=== PATIENT | female | born 1940 | race Hispanic/Latino ===

== ENCOUNTER 2018-03-16 10:21 | Inpatient (IN) | payer OTHER ==
[~2018-03-16] VITALS: Ht 144.8 cm; Wt 67.6 kg
--- NOTE | ~2018-03-16 | OR ---
[facility] [address] [facility] [place], [place] [address] Draft DATE OF OPERATION: 03/19/2018 SURGEON: Lucie Hastings MD PREOPERATIVE DIAGNOSIS: Bloody ascites with carcinomatosis. POSTOPERATIVE DIAGNOSIS: Bloody ascites with carcinomatosis. PROCEDURE: Right abdominal wall paracentesis 4 L. ANESTHESIA: 1% lidocaine. INDICATION: This 77-year-old Congolese woman is admitted by me to the hospital on 03/16/2018 with symptomatic classic abdominal ascites and CT scan showing omental caking and findings of carcinomatosis. A preliminary paracentesis was performed in the emergency room showing bloody ascites. She has undergone additional testing, fluid resuscitation and so forth. Her initial hematocrit was 29, subsequently 24. She was transfused 2 units of blood yesterday. She is hemodynamically good now, although she is quite asymptomatic from her distended abdomen and ascites. A palliative paracentesis was offered and accepted by the patient. The risks of bleeding, infection, and so forth were reviewed and understood. FINDINGS: Bloody ascites, fluid was noted. It was dark blood, not bright in any way. She tolerated it well, 4 L were removed with marked improvement of her abdominal girth. DESCRIPTION OF PROCEDURE: On the supine position, the right lateral abdominal wall was prepared with a Betadine solution and draped sterilely. A 1% lidocaine injected locally. Using a through the needle catheter kit, after local anesthetic administered, the peritoneal cavity was entered and the catheter placed an aspiration undertaken showing bloody ascites fluid. The catheter secured to Accutane bottle and four such bottles were filled without problem. Palpation of the abdomen showed it to be markedly improved. The catheter was removed and a Band-Aid was applied. PATIENT NAME: KANDICE EVANGELISTA OPERATIVE REPORT DATE OF : 44 REPORT #: [id number] PHYSICIAN: LUCIE HASTINGS MD PCP: NO PRIMARY CARE PHYSICIAN REPORT IS CONFIDENTIAL AND NOT TO BE RELEASED WITHOUT AUTHORIZATION [facility] [address] [place] [id number] Draft Evaluation of the fluid has already been undertaken, however, we will send this additional large volume of fluid for cytologic examination as well. MD JAI Monte/MODL /[id number] cc: Courtney More MD Copies: COURTNEY MORE MD ~ PATIENT NAME: KANDICE EVANGELISTA OPERATIVE REPORT DATE OF : 42 REPORT #: [id number] PHYSICIAN: LUCIE HASTINGS MD PCP: NO PRIMARY CARE PHYSICIAN REPORT IS CONFIDENTIAL AND NOT TO BE RELEASED WITHOUT AUTHORIZATION
--- NOTE | ~2018-03-16 | DS ---
[facility] [address] [place], [place] [address] Draft ADMISSION DATE: 03/16/2018 DISCHARGE DATE: 03/20/2018 REASON FOR ADMISSION: This 77-year-old [place] woman is accompanied by her . They live in [place]. Her methodist band tumbler and Dr. Dixon, a retired floorhand from [employer] (retired since 1999), now lives in [facility], and happens to be a member of her methodist accompanied her. Six weeks prior to admission, she underwent umbilical hernia repair in [place]. In the past few days she has not been feeling well and had increased abdominal distention. She presented to the emergency room where she was thoroughly evaluated by Dr. Leal and found to have abdominal distention and concern for possible bowel obstruction related to previous recent hernia repair. A CT scan was performed, which showed no finding of hernia, but did show omental caking, and considerable amount of intraabdominal ascites. The liver appeared normal. She has undergone open cholecystectomy in the past and is known to have had hysterectomy and possibly ovariectomy. LAB STUDIES: Were remarkable for a platelet count of 507,000, white count 10.8, hematocrit 29.4. Lipase was 40, bilirubin 0.3, albumin 3.4, AST 42, and other liver enzymes are normal. PHYSICAL EXAMINATION: A dark-skinned [place] woman with few teeth. Trachea is midline. Mucous membranes moist. CHEST: Clear. HEART: Regular without murmur. ABDOMEN: Distended and not tender. No overt dyspnea. Incision was noted in the umbilicus, which was healing well. The subcostal incision is well healed also. HOSPITAL COURSE: Consultation was undertaken on the basis of probable intraabdominal malignancy with ascites and omental caking and so on. I discussed with Dr. Leal the high probability this represents a malignancy of the ovaries or primary peritoneal carcinoma if ovariectomy has been undertaken, but the possibility of pancreatic cancer and other malignancies is also consideration. Paracentesis was performed by me. She was found to have bloody ascites. Both left and right abdomens were punctured to assess this and confirm this was hemorrhagic ascites rather than simply a complication of the procedure itself. This was affirmed as hemorrhagic ascites. She was admitted to the hospital given intravenous fluids, pain medications, and fluid sent for cytology and cultures to include acid-fast bacilli considering the remote possibility of tuberculous peritonitis. Still by day of discharge, there was no answer regarding the cytology. However, the PATIENT NAME: KANDICE EVANGELISTA DISCHARGE SUMMARY DATE OF : 42 REPORT #: [id number] PHYSICIAN: LUCIE HASTINGS MD PCP: NO PRIMARY CARE PHYSICIAN REPORT IS CONFIDENTIAL AND NOT TO BE RELEASED WITHOUT AUTHORIZATION [facility] [address] [place], [place] [address] Draft pathology showed no signs of organisms, only numerous red cells. There were no organisms seen either. Her urine was cultured as she did have an abnormal urinalysis, which showed E coli. Her CBC was checked the following day, which was down to 24.5. She had significant tenderness of the abdomen likely related to her hemorrhagic ascites. A family conference was occurred with an executive account manager present, which was reliable as well as her and her daughter over this telephone, who lived in [place]. Preliminary information showed high probability this represented ovarian or peritoneal carcinoma considering elevated CA 125 at 65, and only slightly elevated CEA at 4.28 and a CA 19-9, which is only 6.81. AFP hepatic neoplasm marker was normal at 2.62. As a method of symptom control, she underwent 4 L paracentesis on March 19, 2018. This provided market relief of her abdominal pain and distention. At that point, she was able to tolerate a regular diet. Upon further consideration of her options of management to include laparotomy, tumor debulking, and chemotherapy versus symptomatic palliation. In conjunction with her family and discussion with her and so forth, no further intervention of operation or chemotherapy was desired by the patient or family. This specifically noted because it would not be curative. Though it would not be curative, it might provide significant palliation, but still this was not desired by the patient or her family. She does not have a primary care provider and therefore an attempt will be made to align with a primary provider in the [facility] at [facility]. Of note, consultation had been undertaken with Dr. Galicia during hospitalization, whose impression and so forth concurred with my own. She will be discharged to home and will be attempting to sign up with Medicare/Medicaid as she is considered eligible by the eligibility consultant. I will see her back in 4 weeks or so in the office. It is highly probable she will require additional palliative intervention including palliative paracentesis. Attempts were made to control the ascites to some degree with spironolactone and Lasix. At present, she does not have abdominal pain and therefore opiate pain medication is not needed at this time. DISCHARGE MEDICATIONS: Include, 1. Tylenol 650 mg p.o. q.6 hours as needed for pain. 2. Pepcid 20 mg p.o. b.i.d. 3. Aldactone 50 mg p.o. two times daily #60, refill two. 4. Lasix 20 mg p.o. daily #30, refill three. 5. Iron gluconate 236 mg p.o. daily #60. 6. Cipro 500 mg p.o. b.i.d. PATIENT NAME: KANDICE EVANGELISTA DISCHARGE SUMMARY DATE OF : 44 REPORT #: [id number] PHYSICIAN: LUCIE HASTINGS MD PCP: NO PRIMARY CARE PHYSICIAN REPORT IS CONFIDENTIAL AND NOT TO BE RELEASED WITHOUT AUTHORIZATION [facility] [address] [place], [place] [address] Draft DISCHARGE DIAGNOSES: 1. 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 2. Incidental asymptomatic urinary tract infection. 3. History of abdominal hysterectomy, uncertain regarding ovariectomy. 4. Relatively recent umbilical hernia repair ([place]) 6 weeks ago. 5. Hypertension. 6. Anemia. MD JAI Monte/MODL /[id number] cc: Isreal Galicia MD Copies: ISREAL LEAL LOHITH VEERAPPA MD ~ PATIENT NAME: KANDICE EVANGELISTA DISCHARGE SUMMARY DATE OF : 42 REPORT #: [id number] PHYSICIAN: LUCIE HASTINGS MD PCP: NO PRIMARY CARE PHYSICIAN REPORT IS CONFIDENTIAL AND NOT TO BE RELEASED WITHOUT AUTHORIZATION
[2018-03-16] MEDS ORDERED: LISINOPRIL10 MG PO (10:35)
--- NOTE | 2018-03-16 15:09 | NUR ---
PT ARRIVED FROM ED WITH CARRY TRAINING AND DEVELOPMENT PROFESSIONAL RN AT 1505. PT TRANSFERRED SELF FROM STRETCHER TO BED. SIGNIFICANT OTHER AT BEDSIDE. ALBANIAN SPEAKING PRIMARILY. PATIENT APPEARS TO BE ALERT AND ORIENTED. NO NEEDS AT THIS TIME. REPORT SMALL AMOUNT OF PAIN IN ABDOMEN.
--- NOTE | 2018-03-16 16:53 | NUR ---
pt sitting up in bed. significant other at bedside. water provided. septra administered. D5LR infusing into LFA iv. reports not being hungry. pain 5/10 in abdomen.
--- NOTE | 2018-03-16 18:49 | NUR ---
CENTRAL AFRICAN SPEAKING ONLY. SBA TO BATHROOM. MODERATE TO SEVERE ABD DISTENTION. REGULAR DIET. ABD PAIN. ASCITES. PERITONEAL TAP IN ED. CANCER MARKER TESTS DRAWN. AWAITING RESULTS. AT BEDSIDE. ALSO ONLY SPEAKS CENTRAL AFRICAN. ALERT AND ORIENTED. SCDs. D5LR @ 85. SEPTRA PO FOR UTI. HERNIA SURGERY IN [place] IN JANUARY.
--- NOTE | 2018-03-16 18:53 | NUR ---
PROVIDED WITH PILLOW AND BLANKETS TO SLEEP ON COUCH TONIGHT. FAMILY LEAVING SOON. PATIENT UP TO BATHROOM AND THEN UP IN RECLINER NOW. VOIDED 200ML YELLOW URINE. WASHED HANDS AT SINK. DINNER DELIVERED TO ROOM BY DIETARY STAFF.
--- NOTE | 2018-03-16 20:00 | NUR ---
RECEIVED REPORT AT 1900, FOUND PT IN BED WITH FAMILY AT BEDSIDE. PT WAS VOMITING AND ZOFRAN WAS GIVEN. DAY SHIFT RN ALSO CALLED MD HASTINGS FOR STATUS UPDATE AND RECEIVED NEW ORDERS.
--- NOTE | 2018-03-16 21:22 | NUR ---
VITALS AND I&OS DONE AND CHARTED. CHANGED HER BED AND GOWN DUE TO HER HAVING EMISES ON THEM. BEDSIDE TABLE AND CALL LIGHT IN REACH, INFORMED ANGELA VARNER OF THIS.
--- NOTE | 2018-03-16 22:00 | NUR ---
HR IS 100-105. OTHER V/S ARE WDL. 12.5MG OF PHENERGAN HAD TO BE GIVEN WELL DUE TO EMESIS OF ABOUT 500ML. PT HAS BEEN NPO SINCE ABOUT 1999, IV FLUIDS HAVE BEEN INCREASED TO 125ML/HR AT THE SAME TIME WELL. CROCHET BEADER ALSO MONITORING PT DUE TO HIGH DOSES OF NARCOTICS. ABD SOUNDS ARE PRESENT BUT DISTANT DUE TO ASCITIS IN ABD. ABD HAS SEVERE DISTENTION PRESENT AND IS FIRM AND TENDER TO TOUCH. ALL LOBES ARE CLEAR. WILL CONTINUE TO MONITOR.
--- NOTE | 2018-03-17 00:06 | NUR ---
PT WAS SLEEPING. WOKE PT UP FOR ASSESSMENT. ABD SOUNDS ARE NOW HYPOACTIVE, ABD SIZE HAS INCREASED SOME, PT DENIED PAIN AND N/V. PT IS STILL TACHY AT 100-110. WILL CONTINUE TO MONITOR.
--- NOTE | 2018-03-17 01:47 | NUR ---
VITALS AND I&OS DONE AND CHARTED. HELPED PT TO THE BATHROOM AND BACK TO BED. BEDSIDE TABLE AND CALL LIGHT WITHIN REACH. PT AND FAMILY NEEDS NOTHING ELSE AT THIS TIME.
--- NOTE | 2018-03-17 02:00 | NUR ---
PT IS SLEEPING AT THIS TIME. FAMILY IS AT BEDSIDE.
--- NOTE | 2018-03-17 04:02 | NUR ---
PT IS AWAKE IN BED. HAS NO NEEDS AT THIS TIME. FAMILY AT BEDSIDE IS SLEEPING.
--- NOTE | 2018-03-17 05:28 | NUR ---
AT START OF SHIFT PT HAD N/V AND PRN ZOFRAN DID NOT HELP. PRN PHENERGAN WAS GIVEN AND PT WAS MADE NPO. SINCE THEN PT HAS NOT HAD ANY N/V AND PAIN AND HAS BEEN SLEEPING OFF AND ON. ALL LOBES ARE CLEAR, ABD HAS SEVERE ASCITIS PRESENT WITH DISTANT BOWEL TONES. ABD IS FIRM. PT IS AAO X4. HR IS MILDLY TACHY 100-105. O2 SATS ARE >92% ON RA. WILL CONTINUE TO MONITOR.
--- NOTE | 2018-03-17 07:20 | NUR ---
RECIEVED CHANGE OF SHIFT REPORT FROM GARDENIA MILLER. PATIENT RESTING COMFORTABLY IN BED. IV FLUIDS INFUSING. CALL LIGHT WITHIN REACH.
--- NOTE | 2018-03-17 08:19 | NUR ---
TANIAEINT WAS ASSISTED FROM THE CHAIR TO THE BED, SHE IS NPO, SHE SAID SHE MIGHT SHOWER LATER ON, SHE NEEDED NO OTHER ASSISTANCE AT THE TIME WILL RECHECK, BOARD WAS UPDATED.
--- NOTE | 2018-03-17 09:51 | NUR ---
ROUNDED ON PATIENT FOR MEDICATION ADMINISRATION AND MORNING ASSESSMENT, VISITORS AT BEDSIDE. CALL LIGHT WITHIN REACH. AMBULATED PATIENT TO RESTROOM AND BACK TO BED, PATIENT REPORTED RINGING IN RIGHT EAR BUT DENIES DIZZINESS. IV FLUIDS INFUSING AND REPLACED. REPORTS PAIN "3/10" IN ABDOMEN, DENIES WANTING PAIN MEDICATION AT THIS TIME. NO MORE NEEDS AT THIS TIME. WILL CONTINUE TO MONITOR.
--- NOTE | 2018-03-17 10:13 | NUR ---
ROUNDED ON PATIENT TO PLACE SCDs, EDUCATION PROVIDED, PATIENT EXPRESSED UNDERSTANDING.
--- NOTE | 2018-03-17 13:13 | OR ---
[facility] [address] [place], [place] [address] Signed DATE OF OPERATION: 03/16/2018 SURGEON: Lucie Hastings MD PREOPERATIVE DIAGNOSIS: Ascites with intraperitoneal malignancy. POSTOPERATIVE DIAGNOSIS: Hemorrhagic ascites. PROCEDURE: Paracentesis, right and left side. ANESTHESIA: 1% lidocaine. INDICATION: A 77-year-old woman with ascites clinically, as well as a CT scan finding showing carcinomatosis, and omental caking. Sampling or decompression of the peritoneal cavity of the ascites was recommended. The risks of bleeding, infection, and so forth were reviewed with the patient and her family including her family friend, Dr. Dixon, a retired sustainable products marketing manager from [employer]. Understands the risks, all wished to proceed. FINDINGS: Hemorrhagic ascites was noted in the right lower quadrant area. Additional fluid was taken from the left side similarly showing hemorrhagic ascites. PROCEDURE: The patient in supine position the right abdominal wall was prepped with Betadine solution and draped sterilely. A 1% lidocaine injected locally and using a fine-needle aspiration undertaken showing hemorrhagic fluid. Mindful the possibility of having transgressed an abdominal wall blood vessel, no further aspiration was undertaken. Pressure was applied. The left side was prepared in a similar way with similar technique hemorrhagic ascites then confirmed. Sample was taken and specimen sent for cytology, putting 5000 units of heparin in the solution to avoid clumping of cells. Another sample was taken for cultures to include acid-fast bacilli, aerobic and anaerobic cultures. Band-Aids were applied Electronically Signed By: LUCIE HASTINGS MD 03/17/18 6008 PATIENT NAME: KANDICE EVANGELISTA OPERATIVE REPORT DATE OF : 42 REPORT #: [id number] PHYSICIAN: LUCIE HASTINGS MD PCP: NO PRIMARY CARE PHYSICIAN REPORT IS CONFIDENTIAL AND NOT TO BE RELEASED WITHOUT AUTHORIZATION [address] [address] Signed MD JAI Monte/AZIZAL /[id number] cc: Isreal Leal Copies: ISREAL LEAL Electronically Signed By: LUCIE HASTINGS MD 03/17/18 1313 PATIENT NAME: KANDICE EVANGELISTA OPERATIVE REPORT DATE OF : 42 REPORT #: [id number] PHYSICIAN: LUCIE HASTINGS MD PCP: NO PRIMARY CARE PHYSICIAN REPORT IS CONFIDENTIAL AND NOT TO BE RELEASED WITHOUT AUTHORIZATION
--- NOTE | 2018-03-17 13:13 | CONS ---
[facility] [address] [place], [place] [address] Signed DATE OF CONSULTATION: 03/16/2018 TIME: 1:35 p.m. CONSULTING PHYSICIAN: Lucie Hastings MD REQUESTING PHYSICIAN: Dr. Leal. PROBLEM: Ascites and omental caking on CT scan. HISTORY OF PRESENT ILLNESS: This 77-year-old [place] woman is accompanied by her . Her scientology roof slater and Dr. Dixon, a retired stationary engineer supervisor from [employer] (retired since 1999). He happens to be a scientology member of hers. About six weeks ago, she underwent an umbilical hernia repair in [place]. In the past few days she has not been feeling well and had increased abdominal distention. She presented to the emergency room where she was thoroughly evaluated by Dr. Leal, and found to have abdominal distention, and concern was maintained for possible bowel obstruction related to hernia repair. A CT scan was performed, which showed no such finding of hernia, but showed omental caking and considerable amount of intraabdominal ascites. The liver appeared normal. She has had open cholecystectomy in the past is said to have hysterectomy and ovariectomy. LAB STUDIES: Remarkable for a normal platelet count of 507, a white count of 10.8, hematocrit of 29.4. Chem profile shows a sodium of 131, glucose of 111, AST of 42. Other liver enzymes normal. Bilirubin normal at 0.3, albumin 3.4, and lipase of 40. Her urinalysis was somewhat abnormal, suggestive though not diagnostic of urinary tract infection. SOCIAL HISTORY: She speaks no Ugandan essentially. She lives in [place] and has many acquaintances in the [facility] apparently. REVIEW OF SYSTEMS: She denies any shortness of breath or chest pain. Is having no dysuria or hematuria. Denies blood per rectum or hematemesis. PHYSICAL EXAMINATION: Electronically Signed By: LUCIE HASTINGS MD 03/17/18 1313 PATIENT NAME: KANDICE EVANGELISTA CONSULTATION DATE OF : 44 REPORT #: [id number] PHYSICIAN: LUCIE HASTINGS MD PCP: NO PRIMARY CARE PHYSICIAN REPORT IS CONFIDENTIAL AND NOT TO BE RELEASED WITHOUT AUTHORIZATION [facility] [address] [place], [place] [address] Signed GENERAL: This is a dark-skinned [place] woman with a few teeth. Trachea is midline. Mucous membranes are moist. CHEST: Clear. HEART: Regular without murmur. ABDOMEN: Distended and not tender. She has no overt dyspnea. An incision is noted at the umbilicus, which is well healed. They are healing well. EXTREMITIES: No clubbing, cyanosis, or edema. LABORATORY DATA: Lab studies are as described. CT scan as described. ASSESSMENT: The patient has ascites. She has omental caking and this is highly suggestive of malignancy of course. There do appear to be some intraabdominal nodules as well. Typically, one would think of primary pelvic malignancy such as ovarian cancer or even primary peritoneal carcinoma if she has had hysterectomy, and ovariectomy. The pancreas is not well visualized due to the diffuse ascites. I see no sign of hepatic lesions and the common duct is said to be dilated based on the radiologist's interpretation. Paracentesis was performed to allow for diagnosis, however, hemorrhagic ascites was noted on right-sided paracentesis. Similarly the left side was noted to be hemorrhagic. Subsequently, the patient denies prior history of TB or exposure to TB. ASSESSMENT: The patient has hemorrhagic ascites. She does have a slightly low hematocrit and most likely this represents a primary malignancy of some sort. If it is pancreatic cancer, obviously will be incurable and if a pelvic malignancy incurable, but more possibly controllable with appropriate interventions. I will review with Dr. Leal further management options. A CA-125, and CA 19-9 will be obtained, which may assist in guidance. Cytology was being sent for the fluid that was removed. Heparin has been appropriately applied to the sample to avoid clotting of cells. Additionally, cultures including acid-fast bacilli will be undertaken of additional sample. MD JAI Monte/AZIZAL /[id number] Electronically Signed By: LUCIE HASTINGS MD 03/17/18 1313 PATIENT NAME: KANDICE EVANGELISTA CONSULTATION DATE OF : 44 REPORT #: [id number] PHYSICIAN: LUCIE HASTINGS MD PCP: NO PRIMARY CARE PHYSICIAN REPORT IS CONFIDENTIAL AND NOT TO BE RELEASED WITHOUT AUTHORIZATION [facility] [address] [facility] [place], [place] [address] Signed cc: Isreal Osuna [place], [place] Copies: ISRAEL LEAL ~ Electronically Signed By: LUCIE HASTINGS MD 03/17/18 1313 PATIENT NAME: KANDICE EVANGELISTA CONSULTATION DATE OF : 44 REPORT #: [id number] PHYSICIAN: LUCIE HASTINGS MD PCP: NO PRIMARY CARE PHYSICIAN REPORT IS CONFIDENTIAL AND NOT TO BE RELEASED WITHOUT AUTHORIZATION
--- NOTE | 2018-03-17 13:13 | HP ---
[facility] [address] [place], [place] [address] Signed ADMISSION DATE: 03/16/2018 REASON FOR ADMISSION: Hemorrhagic ascites with intraperitoneal neoplasm. HISTORY: This 77-year-old woman from [place] presented to the emergency room and evaluated by Dr. Leal with abdominal distention and pain. She was found to have hematocrit of 29. A month earlier, she underwent umbilical hernia repair in [place]. She is accompanied by her , her sanitation worker, and a family friend, Dr. Dixon, a retired commercial glazier who now lives in [place], [place] previously in [place]. A CT scan was performed, which showed considerable amount of intraabdominal ascites, as well as omental caking, and some peritoneal studding highly consistent with malignancy. Paracentesis was performed by al, anticipating decompression of the abdomen, as well as collection of specimen for cytology and culture as necessary. She is found to have hemorrhagic ascites on both right and left sides and on that basis, large volume paracentesis was not undertaken. She is admitted for further evaluation and care mindful of her somewhat decreased hematocrit and uncertain if a drop in her hematocrit would be expected. She is not particularly hypotensive and appears to be reasonably comfortable at the moment. PAST MEDICAL HISTORY: 1. Includes open cholecystectomy. 2. Umbilical hernia repair. 3. Probable hysterectomy in the distant past with ovariectomy. SOCIAL HISTORY: She is said to live in the [facility], but has numerous family members in [place] [facility] and also in [place]. PHYSICAL EXAMINATION: GENERAL: A pleasant, very short, somewhat obese woman. She has few teeth. Trachea is midline. Mucous membranes are moist. CHEST: Clear. HEART: Regular without murmur. ABDOMEN: Distended and not particularly tender. A healing incision is noted at the umbilicus. EXTREMITIES: No clubbing, cyanosis, or edema. Electronically Signed By: LUCIE HASTINGS MD 03/17/18 1313 PATIENT NAME: KANDICE EVANGELISTA HISTORY AND PHYSICAL DATE OF : 44 REPORT #: [id number] PHYSICIAN: LUCIE HASTINGS MD PCP: NO PRIMARY CARE PHYSICIAN REPORT IS CONFIDENTIAL AND NOT TO BE RELEASED WITHOUT AUTHORIZATION [facility] [address] [place], [place] [address] Signed LABORATORY STUDIES: Showed a normal electrolytes. A hematocrit of 29, platelets over 500,000, and urinalysis slightly abnormal. CT scan was as previously described. ASSESSMENT: The patient has intraperitoneal malignancy of some sort either pancreatic or possibly primary peritoneal or of course a gynecologic source otherwise. The hemorrhagic nature of the ascites is an ominous finding and consideration for infectious source of ascites including TB is also considered given her [place] She will be admitted and observed and additional hematocrit undertaken over time to assure there is no progressive bleeding. Tumor markers of CA-19-9 and CA-125 will be obtained as well. Further management will be largely dependent on the findings of the cytology of the fluid sent. MD JAI Monte/AZIZAL /[id number] cc: Isreal Leal Copies: ISREAL LEAL ~ Electronically Signed By: LUCIE HASTINGS MD 03/17/18 1313 PATIENT NAME: KANDICE EVANGELISTA HISTORY AND PHYSICAL DATE OF : 44 REPORT #: [id number] PHYSICIAN: LUCIE HASTINGS MD PCP: NO PRIMARY CARE PHYSICIAN REPORT IS CONFIDENTIAL AND NOT TO BE RELEASED WITHOUT AUTHORIZATION
--- NOTE | 2018-03-17 13:17 | NUR ---
ROUNDED ON PATIENT FOR MEDICATION ADMINISTRATION. VISITORS NOTIFIED NURSING STAFF THEY PATIENT WOULD LIKE SOME MEDICATION FOR PAIN MANAGMENT. PATIENT REPORTED "5/10" PAIN RATING, PRN MORPHINE ADMINISTRED. WILL CONTINUE TO MONITOR PATIENT'S PAIN LEVEL. AMBULATED PATIENT TO RESTROOM, PATIENT REPORTED BECOMING DIZZY, DIZZINESS RESOLVED WHEN THEY LAYED DOWN IN BED. PATIENT ALSO REPORTED FEELING NAUSEOUS UPON LAYING DOWN IN BED, NAUSEA STARTED TO RESOLVE AFTER LAYING IN BED WELL, EMESIS BAG PROVIDED. NO MORE COMPLAINTS AT THIS TIME. WILL CONTINUE TO MONITOR.
--- NOTE | 2018-03-17 15:42 | NUR ---
ROUNDED ON PATIENT TO ASSESS PAIN, PATIENT REPORTS "3/10" PAIN IN SHOULDERS AND ABDOMEN, DENIES WANTING PAIN MEDICATION AT THIS TIME. HOSPITALIST IN ROOM VISITING WITH PATIENT AND FAMILY. CALL LIGHT WITHIN REACH. NO MORE NEEDS AT THIS TIME.
--- NOTE | 2018-03-17 16:05 | NUR ---
DR. MORE ROUNDED ON PATIENT, NO NEW ORDERS. PATIENT ABLE TO USE THE HIDE CURER LINE. QUESTIONS AND CONCERNS ADDRESSED. PATIENT APPEARS COMFORTABLE.
--- NOTE | 2018-03-17 16:47 | NUR ---
ROUNDED ON PATIENT FOR AFTERNOON ASSESSMENT. PATIENT DENIED PAIN IN ABDOMEN , BUT REPORTED THAT SHE HAD A HEADACHE THAT RATED A "3/10" ON THE PAIN SCALE, PATIENT STATED THAT HEADACHE STARTED TO GO AWAY THE ASSESSMENT WHEN ON, DENIED WANTING PAIN MEDICATION AFTER PROVIDING EDUATION ABOUT PRN PAIN MEDICATIONS AVALIABLE. PATIENT ALSO REPORTED HAVING NAUSEA, BUT DENIES WANTING PRN ZOFRAN AT THIS TIME, TRANSLATING SERVICE WAS UTILIZED TO PROVIDED EDUCATION, PATIENT STILL DENIES WANTING MEDICATION TO ADDRESS THIS ISSUE. IV FLUIDS INFUSING. CALL LIGHT WITHIN REACH. EMESIS BAG AT BEDSIDE. NO MORE COMPLAINTS AT THIS TIME. PROVIDED EDCATION ABOUT USING CALL LIGHT, PATIENT EXPRESSED UNDERSTANDING. WILL CONTINUE TO MONITOR PATIENTS CONDITION.
--- NOTE | 2018-03-17 17:00 | NUR ---
PATIENT REPORTS VERY LITTLE PAIN, UP MOVING AROUND IN ROOM WITH FAMILY PRESENT. DENIES ANY NEED FOR IV MORPHINE. TRANLSATOR LINE USED TO ENSURE PATIENT UNDERSTANDS PAIN CONTROL AND MANAGMENT OF PAIN WITH IV MOPRHINE. PATIENT CONTINUES TO DENY ANY NEED FOR PAIN MEDICATION. CONVERSING WITH FAMILY APPEARS CALM, LAUGHING AND INTERACTING WITH GRANDCHILDREN. NO OTHER NEEDS AT THIS TIME, CALL LIGHT WITHIN REACH.
--- NOTE | 2018-03-17 18:38 | NUR ---
PATIENT ALERT AND ORIENTED X4. IV FLUIDS INFUSING @ 125. KYRGYZ SPEAKING, FAMILY IN ROOM HELPS WITH TRANSLATION, TELEPHONE BULWARK CARPENTER UTILIZED TODAY. PRN MORPHINE SULFATE ADMINISTRED AT 1309 FOR PAIN MANAGMENT. IV ANTIBIOTIC ADMINISTRED TODAY. 1 JUN HEREDIAW. TYPE AND SCREEN/CROSSMATCH, BLOOD CONSENT SIGNED, H&H TRENDING DOWN. LABS PENDING.
--- NOTE | 2018-03-17 18:45 | NUR ---
WITH PHONE TRANSLATION LINE SPOKE WITH PATIENT ABOUT SIGNING BLOOD CONSENT. FAMILY IN ROOM. PATIENT STATEMENT TRANSLATED BACK " I WANTED BLOOD THIS MORNING, BUT NOW I AM FEELING BETTER AND DON'T THINK I NEED IT" CONTINUED TO EXPLAIN PURPOSE OF BLOOD CONSENT, ASSURING PATIENT WAS WELL INFOMRED AND EDUCATIED. PATIENT DENIED ANY QUESTIONS AND PATIENT STATEMENT TRANSLATED BACK " AT THIS TIME NO, NOT WITHOUT MY SAY, I SAY IT'S IN GOD'S HANDS NOW AND HE WILL TAKE CARE OF ME". REASSURED PATIENT WAS NOT TRYING TO PRESSURE IN SIGNING CONSENT. WILL REAPPROACH TOMORROW WITH PRESENT. UPDATED CHARGE NURSE SHAHRZAD.
--- NOTE | 2018-03-17 20:00 | NUR ---
RECEIVED REPORT AT 1900, FOUND PT IN BED WITH LOTS OF FRIENDS AND FAMILY. NO NEW CONCERNS NOTED AT THAT TIME. DAY SHIFT RN DID RELATED TO ME IN REPORT THAT PT REFUSED BLOOD TRANSFUSIONS AT THIS TIME AND DID NOT SIGN CONSENT.
--- NOTE | 2018-03-17 21:49 | NUR ---
VITALS AND I&OS DONE AND CHARTED, BEDSIDE TABLE AND CALL LIGHT IN REACH. PT RESTING IN HER BED WHEN I LEFT.
--- NOTE | 2018-03-17 22:00 | NUR ---
PT OVERALL IS COMFORTABLE IN REGARDS TO PAIN AND NAUSEA. LOBES ARE CLEAR, ABD SOUNDS ARE NOT AUDIBLE DUE TO VERY SEVERE ASCITIES PRESENT. V/S ARE WDL OVERALL. PT HOWEVER DOES HAVE A TEMP OF 99.0 F. URINE OUTPUT IS STILL ADEQUATE BUT PT DOES HAVE A POSITIVE FLUID BALANCE. NO NEW CONCERNS AT THIS TIME.
--- NOTE | 2018-03-17 23:20 | NUR ---
AT 2300 A FAMILY MEMBER WAS VISITING AND SHE WAS ASKING ME ABOUT THE BLOOD TRANSFUSIONS. SHE WAS PRESENT EARLIER TODAY WHEN MD HASTINGS WAS TALKING TO PT AND FAMILY ABOUT THE POSSIBLE NEED FOR ONE. I TOLD HER THAT I WAS UNDER THE IMPRESSION THAT PT HAD REFUSED ANY TRANSFUSIONS. SHE SAID THAT THIS WAS NOT CORRECT. THEREFORE MD HASTINGS WAS CALLED AND HE STATED THAT PT AND HER WERE CONSENTING TO BLOOD TRANSFUSIONS. CONSENT IS ON CHART TO BE SIGNED BY PT. AT THIS TIME, REPORT WAS GIVEN TO MARCIA AND ISHAN AT THIS TIME FOR THIS PT. THEY HAVE NOW RESUMED CARE OF THIS PT.
--- NOTE | 2018-03-18 | NUR ---
PT IS SLEEPING AT THIS TIME.
--- NOTE | 2018-03-18 00:29 | NUR ---
AT THIS TIME I WILL RESUME CARE FOR THIS PT AGAIN DUE TO TB CONCERNS AT WRITTEN IN THE NOTES OF BOTH MD'S.
--- NOTE | 2018-03-18 02:15 | NUR ---
PT IS SLEEPING AT THIS TIME. IV ABX GIVEN AND FLUID BAG CHANGED. PT DID NOT WAKE UP. IS AT BEDSIDE.
--- NOTE | 2018-03-18 04:00 | NUR ---
PT AT THIS TIME IS SLEEPING. RR REGULAR.
--- NOTE | 2018-03-18 05:04 | NUR ---
VITALS AMD I&OS DONE AND CHARTED. GARBAGES EMPTIED , ROOM CLEANED UP. HELPED PT TO THE BATHROOM AND BCK TO BED. CHANGED HER GOWN AND DRAW SHEET DUE TO HER BEING WET FROM SWEAT. BEDSIDE TABLE AND CALL LIGHT IN REACH. PT NEEDS NOTHING MORE AT THIS TIME.
--- NOTE | 2018-03-18 06:38 | NUR ---
PT SLEPT MOST OF THE NIGHT AND DID NOT REQUIRE ANY PRN PAIN MEDICATION OR NAUSEA MEDICATION. ABD DISTENTION IS MORE SEVERE THAN ON DAY OF ADMISSION. BOWEL TONES ARE CANNOT BE AUSCULTATED AT THIS POINT. PT AT TIMES IS MILDLY TACHY IN THE LOW 100'S. LOBES ARE CLEAR. PT IS STEADY ON HER FEET. PT DID HAVE A TEMP OF 99.0 AT START OF SHIFT BUT THIS HAS SINCE RESOLVED. BP'S ARE WDL. WILL CONTINUE TO MONITOR.
--- NOTE | 2018-03-18 09:15 | NUR ---
PT FRENCH SPEAKING ONLY, VIDEO SPONGE PRESS OPERATOR USED TO COMMUNICATE WITH PT FOR AM ASSESSMENT. PT REPORTS PAIN OF ABD, BILATERAL SHOULDERS, LOWER BACK AND UPPER ABD. PT WAS ASKED MULTIPLE TIMES IF SHE WOULD LIKE SOMETHING FOR PAIN BUT SHE DENIED STATING "IT'S ONLY A LITTLE BIT OF PAIN." SHE JUST "WANTS TO KNOW WHY." PT DENIES NAUSEA OR DIFFICULTY BREATHING. REPORTS BURNING WHILE URINATING. EXPLAINED POSITIVE URINE CULTURE AND IV ANTIBIOTICS. PT ALERT AND ORIENTED. SEVERE ABD DISTENTION NOTED WITH FIRMNESS, DENIES PAIN WITH PALPATION, POSITIVE BT, REPORTS POSITIVE FLATUS. AT BEDSIDE. CALL LIGHT WITHIN REACH.
--- NOTE | 2018-03-18 10:53 | NUR ---
Medications reconciled through interview with patient's family friend Dr Chris Dixon, whom I also know. Patient is Uzbek speaking only
--- NOTE | 2018-03-18 10:55 | NUR ---
PATIENT SETTING IN HER CHAIR , FAMILY MEMBER IN ROOM. VITALS TAKEN, CALL LIGHT WITH IN REACH. NO OTHER NEEDS AT THIS TIME.
--- NOTE | 2018-03-18 11:20 | NUR ---
IV PUMP BEEPING. NEW BAG OF FLUIDS HUNG (SEE MAR). PATIENT IN CHAIR WITH FAMILY AROUND. CALL LIGHT WITHIN REACH.
--- NOTE | 2018-03-18 11:56 | NUR ---
PT SITTING IN RECLINER VISITING WITH FAMILY. DENIES NEEDS OR CONCERNS AT THIS TIME, JUST REPORTS PER FAMILY THAT SHE IS HUNGRY AND WANTS SOMETHING TO EAT. CALL LIGHT WITHIN REACH.
--- NOTE | 2018-03-18 14:40 | NUR ---
PT LYING IN BED WITH EYES CLOSED, RESP EVEN AND UNLABORED. SIGNIFICANT OTHER ASLEEP ON THE COUCH.
--- NOTE | 2018-03-18 14:50 | NUR ---
DR. HASTINGS CALLED TO SAY HE WOULD BE IN TO SEE PT BETWEEN 1500 AND 1530. ATTEMPTED TO NOTIFY FRIEND YEVGENIY AND TYRESE KAY. NO ANSWERS AT THIS TIME. CONTACTED VIOLA BAUTISTA. SHE STATED SHE WOULD ATTEMPT TO CALL SOME FAMILY.
--- NOTE | 2018-03-18 15:19 | NUR ---
WAS ABLE TO CONTACT YEVGENIY. STATES SHE WOULD TRY TO BE HERE TAN[place]Y.
--- NOTE | 2018-03-18 16:30 | NUR ---
DR. HASTINGS IN ROOM TO DISCUSS PLAN OF CARE WITH PT, , AND FAMILY FRIENDS. MANUAL WINDER INVOLVED TO HELP COMMUNICATE WITH PT AND FAMILY, DAUGHTERS ON CELL PHONE. PT TEARFUL AFTER INTERACTION. RESTING IN BED. LEFT PT TO VISIT WITH FAMILY.
--- NOTE | 2018-03-18 18:45 | NUR ---
FIRST UNIT OF BLOOD STARTED AT 1625. NO SIGNS OF REACTION AFTER FIRST 15 MIN OF ADMINISTRATION. PT SBA TO RESTROOM AND BACK TO BED AT THIS TIME. PT DENIES NEEDS OR CONCERNS.
--- NOTE | 2018-03-18 19:05 | NUR ---
IN ROOM FOR REPORT, PT IS AWAKE IN BED. SHE DENIES NEEDS AT THIS TIME. CALL LIGHT IS WITHIN REACH.
--- NOTE | 2018-03-18 21:00 | NUR ---
IN ROOM TO ASSESS PT AND ADMINISTER MEDICATIONS. ALSO COMPLETED FIRST UNIT OF RBCS AND STARTED 2ND UNIT OF RBCS. PT DENIES ANY REACTIONS, VS ARE WNL. SHE RATES PAIN AT 0 BUT STATES IT IS A CONTANT ACHE. SHE DENIES THE NEED FOR PAIN MEDICATION. HER GRANDAUGHTER IS IN THE ROOM AND THIS TIME AND HELPING TRANSLATE. SHE DENIES NEEDS AT THIS TIME.
--- NOTE | 2018-03-19 00:05 | NUR ---
PT IS RESTING WITH EYES CLOSED, RESPIRATIONS ARE EVEN AND NONLABORED. CALL LIGHT IS WITHIN REACH.
--- NOTE | 2018-03-19 02:53 | NUR ---
IN ROOM TO ASSESS PT AND ADMINISTER ANCEF. PT DENIES PAIN AND NEEDS AT THIS TIME. CALL LIGHT IS WITHIN REACH. FAMILY IS IN ROOM
--- NOTE | 2018-03-19 03:21 | NUR ---
PT UP TO RESTROOM AND BACK TO BED.
--- NOTE | 2018-03-19 06:47 | NUR ---
PT IS RESTING WITH EYES CLOSED, RESPIRATIONS ARE EVEN AND NONLABORED.
--- NOTE | 2018-03-19 07:30 | NUR ---
BEDSIDE HAND OFF REPORT RECEIVED FROM CHAIN MAKER HAND RN. PT RESTING IN BED. PT DENIES NEEDS AT THIS TIME.
--- NOTE | 2018-03-19 07:40 | NUR ---
PT ASSISTED TO BATHROOM, VOIDING WITHOUT DIFFICULTY. PT DENIES PAIN. PT ON ROOM AIR, LUNG SOUNDS CLEAR. BOWEL TONES ACTIVE, NPO, ASKING ABOUT DRINKING WATER. PT CMS INTACT, WITHOUT EDEMA, SCDS IN PLACE, PULSES STRONG. PT AMBULATED WITH SBA. PT ABD WITH SEVERE ASCITES, FIRM. PT SPOUSE AT BEDSIDE. PT DENIES OTHER NEEDS AT THIS TIME.
--- NOTE | 2018-03-19 08:00 | NUR ---
PATIENT'S HOLDING MEDICATIONS IN BAG AND ATTEMPTING TO REQUEST SOMETHING. SALVAGE MECHANIC LINE THEN USED, PATIENT THEN REPORTED THAT IS DIABETIC AND NEEDS TO FOOD TO EAT WITH MEDICATION. TOOK ORDER AND PROVIDED WITH CAREGIVER TRAY. PATIENT THEN REQUESTED PASTORIAL SERVICES, AND WANTING SPECIAL PRAYER. DAVION MCBRIDE CONTACTED.
--- NOTE | 2018-03-19 08:33 | NUR ---
Patient in bed. face washed, call light in reach, no other needs at this time.
--- NOTE | 2018-03-19 11:29 | NUR ---
PT WITH EMESIS. CHILD CARE DIRECTOR COMPUTER USED TO INTERPRET. PT STATES SHE IS NAUSEATED AFTER DRINKING MILK. PT EDUCATED THAT SHE IS NOT ALLOWED TO EAT OR DRINK AT THIS TIME BECAUSE NOTHING IS PASSING THROUGH. PT THEN STATES FOOD IS SITTING IN HER STOMACHE THAT THE MILK IS THE ONLY THING MAKING HER SICK. REINFORCED THAT SHE IS NOT SUPPOSED TO EAT OR DRINK ANYTHING. INFORMED CONSENT FOR PARACENTESIS COMPLETED WITH PT. PT GIVEN ZOFRAN FOR NAUSEA. PT REQUESTING MEDICATION FOR CONSTIPATION, WILL DISCUSS WITH .
--- NOTE | 2018-03-19 13:28 | NUR ---
PT STATED THAT SHE WOULD LIKE TO HAVE [place] SPEAKING CLERGY CARE FOR HER. I CONTACTED DEACON JEREZ FROM [facility]. 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 WILL BE AVAILABLE NEEDED
--- NOTE | 2018-03-19 13:51 | NUR ---
PT RESTING IN BED. IV FLUIDS RESTARTED AFTER SHOWER. PT NOTIFIED THAT DR. HASTINGS WILL DO PARACENTESIS SOON. PT DENIES NEEDS AT THIS TIME.
--- NOTE | 2018-03-19 15:13 | NUR ---
ASSISTED DR HASTINGS WITH PARACENTESIS. PATIENT TOLERATED PROCEDURE WELL.
--- NOTE | 2018-03-19 16:49 | NUR ---
DISCUSSED WITH DR. HASTINGS PLAN OF CARE, TELEPHONE ORDER FOR CBC IN AM, REGULAR DIET TOLERATED, AND MILK OF MAG FOR CONSTIPATION. POSSIBLE DISCHARGE TOMORROW DEPENDING ON LABS. PERSHING MISSILE CREWMEMBER COMPUTER USED TO UPDATE PT AND SPOUSE AND ASSIST PT AND SPOUSE TO ORDER DINNER. PT DENIES OTHER NEEDS AT THIS TIME.
--- NOTE | 2018-03-19 18:05 | NUR ---
PT HAD PARACENTESIS TODAY. PT ON ROOM AIR, LUNG SOUDNS CLEAR. PT GRENADIAN SPEAKING ONLY. PT DENIED PAIN THROUGHOUT SHIFT. ADVANCED TO REGULAR DIET TOLERATED. PT UP WITH SBA. IV INFUSING D5LR AT 125 ML/HR, IV ANCEF. PT VOIDING QS, PT COMPLAINT OF CONSTIPATION, STARTED MILK OF MAG.
--- NOTE | 2018-03-19 19:25 | NUR ---
REPORT RECEIVED FROM ANGELA DUMONT. PT RESTING SUPINE IN BED AND APPEARS TO BE IN NO ACUTE DISTRESS. FAMILY AT BEDSIDE. CALL LIGHT AND H20 IN REACH. NO CONCERNS VOICED.
--- NOTE | 2018-03-20 00:20 | NUR ---
PT RESTING SUPINE IN BED, EYES CLOSED AND APPEARS TO BE SLEEPING COMFORTABLY. CALL LIGHT AND H20 REMAIN IN [place] FAMILY AT BEDSIDE.
--- NOTE | 2018-03-20 04:50 | NUR ---
PT REPORTS NASUEA THAT HAS CAUSED HER TO DEVELOPE A HEADACHE. PROM BURN OFF OPERATOR UTILIZED. PT STATES PAIN IS SMALL AMOUNT AND DECLINES PAIN MEDICATION. PT DID AGREE TO TAKE IV ZOFRAN FOR NAUSEA. PT STATES SHE IS HAVING A HARD TIME DEALING WITH HER CANCER DIAGNOSIS. THERAPEUTIC COMMUNICATION UTILIZED. PT DENIES FURTHER NEEDS AND AGREES TO USE CALL LIGHT IF SYMPTOMS PERSIST. CALL LIGHT IN REACH AND PT DENIES HAVING ANY FURHTER CONCERNS OR REQUESTS.
--- NOTE | 2018-03-20 07:30 | NUR ---
PATIENT REPORT RECEIVED BY LOUIS MILLER, PATIENT RESTING WITH EYES CLOSED, ON RA. NO S/S OF DISTRESS AT THIS TIME.
--- NOTE | 2018-03-20 07:30 | NUR ---
PATIENT REPORT RECEIVED FROM LOUIS, PATIENT IS RESTING WITH EYES CLOSED. SHE REMAINS ON RA.
--- NOTE | 2018-03-20 08:00 | NUR ---
PT IS IVORIAN SPEAKING ONLY AND REQUIRES USE OF BLOWER FEEDER DYED RAW STOCK STATION WHICH IS AT BEDSIDE. PT DID REPORT "PEQUITO" ABDOMINAL DISCOMFORT WITH SOME NAUSEA WHICH SHE RECEIVED IV ZOFRAN FOR. PT DENIES NEED FOR PRN PAIN MEDICATION WHEN OFFERED. BT'S ACVTIVE AND PT DID HAVE SMALL SOFT BM THIS SHIFT. PT IS SBA. PT HAS MAINTENANCE FLUIDS RUNNING AT 125ML/HR. VOIDING QS URINE OUTPUT. NO REPORTS OF SOB THIS SHIFT. PT MAY POTENTIALY DISCHARGE IF REPEAT LABS THIS AM ARE WITHIN NORMAL LIMITS.
--- NOTE | 2018-03-20 09:28 | NUR ---
PATIENT'S IV SALINE LOCKED FOR THE SHOWER AND ASSISTED UP TO THE SHOWER BY THE CARETAKER, SHE REMAINS STEADY ON HER FEET AND DENIES ANY PAIN CURRENTLY.
--- NOTE | 2018-03-20 10:20 | NUR ---
PATIENT SITING UP IN CHAIR. IN ROOM. OIL WELL SERVICES SUPERVISOR IS TAKING VITALS SIGNS WHEN HEAD GREENSKEEPER ENTERS THE ROOM AND REQUESTS TRANSLATION FOR THE PATIENT. OIL WELL SERVICES SUPERVISOR TRANSLATE THE QUESTIONS THAT THE HEAD GREENSKEEPER NEEDS. HEAD GREENSKEEPER FINISH THE QUESTIONS. PATIENT INFORMED ABOUT THE HEAD GREENSKEEPER NEEDS THE PATIENT KNOWS. CALL LIGHT WITHIN REACH. NO OTHER NEEDS AT THIS TIME.
--- NOTE | 2018-03-20 10:47 | NUR ---
REPORT GIVEN TO DAUGHTER REGARDING UPDATE ON PATIENT AT THIS TIME.
--- NOTE | 2018-03-20 11:07 | NUR ---
PATIENT SITING UP IN CHAIR. IN ROOM. LINENS CHANGED. SET UP BATROOM FOR SHOWER. ICE WATER GIVEN. CALL LIGHT WITHIN REACH. NO OTHER NEEDS AT THIS TIME.
--- NOTE | 2018-03-20 11:12 | NUR ---
MARY ELLEN CHOWDHURY ASSISTED WITH TRANSLATION FOR ASKING THE PATIENT IF SHE WOULD LIKE THE FLU VACCINE, PURPOSE OF THE VACCINE EXPLAINED TO THE PATIENT AND HER . BOTH IN AGREEMENT THAT SHE SHOULD RECEIVE THE VACCINE.
--- NOTE | 2018-03-20 11:32 | NUR ---
FLU VACCINE GIVEN TO THE PATIENT AT THIS TIME, PATIENT'S DAUGHTER IN THE ROOM AND ASSISTED WITH TRANSLATION AT THIS TIEM.
[2018-03-20] MEDS ORDERED: MAPAP325 MG PO (13:06)
[2018-03-20] MEDS ORDERED: FAMOTIDINE20 MG PO (13:07)
[2018-03-20] MEDS ORDERED: ALDACTONE50 MG PO (13:07)
[2018-03-20] MEDS ORDERED: IRON236 MG PO (13:08)
[2018-03-20] MEDS ORDERED: LASIX20 MG PO (13:08)
[2018-03-20] MEDS ORDERED: CIPRO500 MG PO (13:14)
--- NOTE | 2018-03-20 13:27 | NUR ---
TALKED WITH YEVGENIY-THE INTEPRETER AND EXPLAINED THE PROCESS FOR MEDICARE AND WHERE THEY NEEDED TO GO FOR THAT AND WHERE TO GO TO GET SIGNED UP OR FIND OUT IF SHE IS ELIGIBLE FOR MEDICAID. SHE STATED UNDERSTANDING
== END 2018-03-20 13:35 | disposition home or self-care (01) | DRG 375 ==
LOC: ED 10:21 → MS 14:08
PROVIDERS: ADMIT Surgery
PROC: 0W9G3ZX Drainage of Peritoneal Cavity, Percutaneous Approach, Diagnostic (ICD-10-PCS; principal; 2018-03-16)
PROC: 0W9G3ZZ Drainage of Peritoneal Cavity, Percutaneous Approach (ICD-10-PCS; 2018-03-19)
PROC: 0W9G3ZX Drainage of Peritoneal Cavity, Percutaneous Approach, Diagnostic (ICD-10-PCS; 2018-03-19)
DX: C48.2 Malignant neoplasm of peritoneum, unspecified (principal); C56.9 Malignant neoplasm of unspecified ovary; R18.0 Malignant ascites; N39.0 Urinary tract infection, site not specified; B96.20 Unspecified Escherichia coli [E. coli] as the cause of diseases classified elsewhere; I10 Essential (primary) hypertension; E66.9 Obesity, unspecified; D64.9 Anemia, unspecified; Z79.899 Other long term (current) drug therapy; Z68.29 Body mass index [BMI] 29.0-29.9, adult
CPT/HCPCS: 36415; 36430; 74018; 74177; 80053; 81001; 82105; 82378; 82728; 83540; 83605; 83690; 84466; 85014; 85018; 85025; 85610; 86301; 86304; 86704; 86706; 86709; 86803; 86850; 86900; 86901; 86920; 87077; 87088; 87186; 87340; 94644; 94762; 96361; 96374; 96375; 99285; J0690; J1644; J2270; J2405; J2550; J7030; J7120; P9016; Q9967

== ENCOUNTER 2018-03-24 11:09 | Emergency (ER) | payer OTHER ==
[~2018-03-24] VITALS: Ht 144.8 cm; Wt 67.6 kg
[~2018-03-24 11:09] MED LIST: ALDACTONE50 MG PO; CIPRO500 MG PO; FAMOTIDINE20 MG PO; IRON236 MG PO; LASIX20 MG PO; LISINOPRIL10 MG PO; MAPAP325 MG PO
--- OUTSIDE RECORDS SUMMARY | 2018-03-24 11:14 | XMS ---
PreManage Notification: KANDICE EVANGELISTA Security Director Consumer Affairs Events No recent Security Events currently on file CRITERIA MET - [facility] - 2 Visits in 30 Days CARE PROVIDERS There are no care providers on record at this time. Jose has no Care Guidelines for this patient. Kaci VISIT COUNT (12 MO.) [address] [facility] TOTAL 2 NOTE: Visits indicate total known visits. ED/C VISIT TRACKING (12 MO.) 03/24/2018 11:09 [facility] [place] TYPE: Emergency COMPLAINT: - ABDOMINAL PAIN 03/16/2018 10:22 [facility] [place] TYPE: Emergency COMPLAINT: - ABD PAIN INPATIENT VISIT TRACKING (12 MO.) No inpatient visits to display in this time frame [email or web address]
[2018-03-24] MEDS ORDERED: ZOFRAN ODT8 MG PO (16:52)
== END 2018-03-24 17:05 | disposition home or self-care (01) ==
LOC: ED 11:09
DX: R11.2 Nausea with vomiting, unspecified (principal); C76.2 Malignant neoplasm of abdomen; I10 Essential (primary) hypertension; Z79.899 Other long term (current) drug therapy
CPT/HCPCS: 74022; 80053; 81001; 83690; 85025; 96361; 96374; 99284; J2405; J7040